=== PATIENT | male | born 1965 | race Caucasian/White ===

== ENCOUNTER 2020-05-02 16:57 | Emergency (ER) | payer MEDICAID ==
[~2020-05-02] VITALS: Ht 188 cm; Wt 121.6 kg
[2020-05-02 17:08] VITALS: BP 150/106
--- NOTE | 2020-05-02 17:38 | Emergency Room Report ---
History of Present Illness General Chief Complaint: Male Urogenital Problems Source: Patient Present Illness HPI 55-year-old male with history of anxiety, depression, high cholesterol, presents with decreased sensation to his penis 1 month status post injury. He reports 1 month ago, he was masturbating when he felt a crack to the base of his penis. He did not have any pain. The next day he noticed his penis was black and blue which lasted about 4 to 5 days and then resolved. Since then he has experienced decreased sensation to the penis, and trouble having both erection and ejaculation. He denies any dysuria, hematuria, penile discharge. He denies any pain, swelling, or ecchymosis for the past few weeks or currently. No testicular pain or swelling. He denies any hematuria or retention. Allergies: Coded Allergies: No Known Allergies (Unverified , 05/02/20) COVID-19 Screening Contact w/high risk pt: No Experienced COVID-19 symptoms?: No COVID-19 Testing performed WRAPAROUND FACILITATOR: No Patient History Past Medical History: see triage record Reviewed Nursing Documentation: PMH: Agreed; PSxH: Agreed Nursing Documentation-PMH Past Medical History: No History, Except For History Of Psychiatric Problem: Yes Review of Systems All Other Systems: negative except mentioned in HPI Physical Exam Vital Signs Date Time Temp Pulse Resp B/P (MAP) Pulse Ox O2 Delivery O2 Flow Rate FiO2 05/02/20 17:08 98.4 79 20 150/106 96 Room Air Sp02 EP Interpretation: reviewed, normal General Appearance: normal inspection, well appearing, no apparent distress, alert, GCS 15, non-toxic ENT: EOM grossly intact, normal voice Neck: normal inspection, full range of motion, supple, thyroid normal, no meningismus, no bony tend Respiratory: chest non-tender, lungs clear, normal breath sounds, no respiratory distress Cardiovascular #1: normal peripheral pulses, regular rate, rhythm Gastrointestinal: normal inspection, normal bowel sounds, non tender, soft, no mass, no organomegaly, no guarding, no rebound Genitourinary: normal inspection, penis normal, scrotum normal, other - No abnormalities to the penis. No tenderness, ecchymosis, erythema, swelling, deformity. Musculoskeletal: normal inspection, normal range of motion, no calf tenderness , gait/station normal, non-tender Neurologic: alert, motor strength/tone normal, pest control service representative III-XII nml as tested, oriented x3, sensory intact, speech normal Psychiatric: judgement/insight normal, mood/affect normal Skin: no rash, normal color, warm/dry Lymphatic: no adenopathy Medical Decision Making PA Attestation Dr. Velasco is my supervising physician whom patient management and care has been discussed with. ER Course Pt. presents to the ED c/o decreased sensation to the penis, and difficulty with erection and ejaculation s/p feeling a crack in his penis while masturbating one month ago. Ddx considered but are not limited to penis fracture, testicular torsion, impotence. Vital signs: are WNL, pt. is afebrile H&PE are most consistent with penile injury, delayed presentation. ORDERS: none required at this time, the diagnosis is clinical ED INTERVENTIONS: None required at this time. DISCHARGE: At this time pt. is stable for d/c to home. Advised to follow up outpatient in 1-2 days with a urologist. Informed that impotence is a possible outcome due to injury and that it is imperative to follow up with urologist. Patient verbalizes understanding and agrees. Care plan and follow up instructions have been discussed with the patient prior to discharge. Last Vital Signs Date Time Temp Pulse Resp B/P (MAP) Pulse Ox O2 Delivery O2 Flow Rate FiO2 05/02/20 17:08 98.4 79 20 150/106 (121) 96 Room Air Disposition: HOME, SELF-CARE Condition: Stable Scripts No Active Prescriptions or Reported Meds Nilsa Tidwell May 02, 2020 17:38
[2020-05-02 18:17] VITALS: BP 147/90
== END 2020-05-02 18:17 | disposition home or self-care (01) ==
LOC: EMR 17:45
DX: S39.94XA Unspecified injury of external genitals, initial encounter (principal); E78.00 Pure hypercholesterolemia, unspecified; F41.9 Anxiety disorder, unspecified; F32.9 Major depressive disorder, single episode, unspecified; X58.XXXA Exposure to other specified factors, initial encounter; Y92.9 Unspecified place or not applicable
CPT/HCPCS: 99281